=== PATIENT | male | born 2005 | race Two or more races ===

== ENCOUNTER 2025-04-12 09:33 | Emergency (ER) | payer OTHER ==
[2025-04-12 09:45] VITALS: BP 113/77; PULSE 71; RESP 20; TEMP 98.4; BMI 25.0
== END 2025-04-12 10:56 | disposition home or self-care (01) ==
LOC: JERFT 09:33
DX: H61.23 Impacted cerumen, bilateral (principal); H92.02 Otalgia, left ear
CPT/HCPCS: 99282-25